=== PATIENT | male | born 1975 | race Caucasian/White ===

== ENCOUNTER 2017-07-11 17:39 | Emergency (ER) | payer MEDICAID | END 2017-07-11 20:02 | disposition left against medical advice (07) | LOC: ED 17:39 | DX: Z53.21 Procedure and treatment not carried out due to patient leaving prior to being seen by health care provider (principal) ==

== ENCOUNTER 2017-07-12 14:40 | Emergency (ER) | payer MEDICAID ==
[~2017-07-12] VITALS: Ht 180.3 cm; Wt 94.8 kg
[2017-07-12 14:43] VITALS: BP 141/86
== END 2017-07-12 16:33 | disposition home or self-care (01) ==
LOC: ED 14:40
DX: J02.9 Acute pharyngitis, unspecified (principal); Z88.0 Allergy status to penicillin
CPT/HCPCS: J1100; J1885